=== PATIENT | female | born 1990 ===

== ENCOUNTER 2018-10-07 14:57 | Emergency (ER) | payer OTHER ==
--- NOTE | 2018-10-07 15:13 | ED PDOC ---
Arrival/HPI - General Time Seen by Provider: 10/07/18 15:01 Historian: Patient - History of Present Illness Narrative History of Present Illness (Text): 10/07/18 15:09 28 F with pmh of bipolar disorder presents with chief complaint of SOB w/anxiety [id number]. She notes sudden onset of shortness of breath without any chest pain. She denies any PND, orthopnea or BREWER. She denies any leg swelling. Patient denies feeling depressed or doing any drugs. LMP in August. Patient mentioned she has been complaint with her Latuda medications for her bipolar disorder. Patient denies any fevers, chills, headache, dizziness, cough, abdominal pain, nausea, vomiting, diarrhea, back pain, neck pain, or any other complaint. Time/Duration: 1-3 hours Symptom Onset: Sudden Symptom Course: Unchanged Activities at Onset: Light Context: Home Past Medical History - Provider Review Nursing Documentation Reviewed: Yes Family/Social History - Physician Review Nursing Documentation Reviewed: Yes Family/Social History: Unknown Family HX Allergies/Home Meds Allergies/Adverse Reactions: Allergies No Known Allergies Allergy (Verified 10/07/18 15:10) Home Medications: Home Meds Medication Instructions Recorded Confirmed Lurasidone HCl [Latuda] 120 mg PO HS 10/07/18 10/07/18 Review of Systems - Physician Review All systems were reviewed & negative as marked: Yes - Review of Systems Constitutional: Normal. absent: Fatigue, Fevers Eyes: Normal. absent: Vision Changes, Photophobia, Eye Pain ENT: Normal Respiratory: SOB Cardiovascular: Normal. absent: Chest Pain, Palpitations Gastrointestinal: Normal. absent: Abdominal Pain, Constipation, Diarrhea, Nausea, Vomiting Genitourinary Female: Normal. absent: Dysuria, Frequency, Hematuria, Urine Output Changes, Vaginal Bleeding, Vaginal Discharge Musculoskeletal: Normal. absent: Arthralgias, Back Pain, Neck Pain Skin: Normal. absent: Rash, Pruritis Neurological: Normal. absent: Headache, Dizziness, Focal Weakness Endocrine: Normal Hemo/Lymphatic: Normal Psychiatric: Anxiety. absent: Depression, Suicidal Ideation Physical Exam - Physical Exam Narrative Physical Exam (Text): 10/07/18 15:15 Impression: 28 F with pmh of bipolar disorder presents with chief complaint of SOB w/anxiety [id number] Plan: -- Labs -- EKG -- CXR Prior Visits: Notes and results from previous visits were reviewed. Progress Notes: Vital Signs Reviewed: Yes Temperature: Afebrile Blood Pressure: Normal Pulse: Tachycardic Respiratory Rate: Normal Appearance: Positive for: Well-Appearing, Non-Toxic, Comfortable Pain Distress: None Mental Status: Positive for: Alert and Oriented X 3 - Systems Exam Head: Present: Atraumatic, Normocephalic Pupils: Present: PERRL Extroacular Muscles: Present: EOMI Conjunctiva: Present: Normal Ears: Present: Normal, NORMAL TM, Normal Canal. No: Erythema Mouth: Present: Moist Mucous Membranes Pharnyx: Present: Normal. No: ERYTHEMA, EXUDATE, TONSILS ENLARGED, Uvular Deviation, Muffled/Hoarse Voice Neck: Present: Normal Range of Motion. No: Meningeal Signs, MIDLINE TENDERNESS Respiratory/Chest: Present: Clear to Auscultation, Good Air Exchange. No: R espiratory Distress, Accessory Muscle Use, Wheezes, Decreased Breath Sounds, Rales, Retracting, Rhonchi, Tachypneic Cardiovascular: Present: Normal S1, S2, Peripheal Pulses Present, Tachycardic. No: Murmurs, Bradycardic, Rub, Gallop, Muffled Abdomen: No: Tenderness, Distention, Peritoneal Signs, Rebound, Guarding, McBurney's Point Tender Back: Present: Normal Inspection. No: CVA Tenderness, Midline Tenderness Upper Extremity: Present: Normal Inspection, Normal ROM, NORMAL PULSES. No: Cyanosis, Edema Lower Extremity: Present: Normal Inspection, NORMAL PULSES. No: Edema Neurological: Present: GCS=15, CN II-XII Intact, Speech Normal Skin: Present: Warm, Dry, Normal Color. No: Rashes Psychiatric: Present: Alert, Oriented x 3, Anxious. No: Suicidal Ideation, Homicidal Ideation Medical Decision Making ED Course and Treatment: 10/07/18 15:15 Impression: 28 F with pmh of bipolar disorder presents with chief complaint of SOB w/anxiety [id number]. She notes sudden onset sob without any chest pain. No fall or trauma. No fever, chills or night sweats. No wheezing. No abdominal pain. No back pain. No GI or complaints. No SI or HI or depression / anxiety. No inability to sleep or increased energy. No hx of blood clots, recent surgery, use of horomone therapy or OCPS, hemoptysis, leg swelling or family hx of bleeding / clotting disorders. No cough or throat swelling or sore throat or change in phonation. No chest pain. Low pretest wells. will D-Dimer to rule out Plan: -- Labs -- EKG -- CXR Prior Visits: Notes and results from previous visits were reviewed. Progress Notes: 10/07/18 15:26 EKG: Ordered, reviewed, and independently interpreted the EKG. Rate : 98 BPM Rhythm : NSR Interpretation : No STEMI 10/07/18 16:37 labs, imaging unremarkable reassessed, pt lying comfortably, in NAD w/ lungs CTA b/l, normal affect she notes full resolution of SOB likely panic attack Pt denies any bipolar symptoms. No SI or HI or depression or hallucinations clear for d/c home w/ return indications and f/u, she is agreeable to plan. - Scribe Statement The provider has reviewed the documentation as recorded by the Salena Gil Provider Scribe Attestation: All medical record entries made by the [facility] were at my direction and personal ly dictated by me. I have reviewed the chart and agree that the record accurately reflects my personal performance of the history, physical exam, medical decision making, and the department course for this patient. I have also personally directed, reviewed, and agree with the discharge instructions and disposition. Disposition/Present on Arrival - Present on Arrival Any Indicators Present on Arrival: No - Disposition Have Diagnosis and Disposition been Completed?: Yes Diagnosis: Shortness of breath, Panic attack Disposition: HOME/ ROUTINE Disposition Time: 16:48 Condition: STABLE Discharge Instructions (ExitCare): Anxiety, Adult (DC), Shortness of Breath (Dyspnea) (DC) Additional Instructions: MARYANA ELLIS, thank you for letting us take care of you today. Your provider was Andre Crespo and you were treated for SOB. The emergency medical care you received today was directed at your acute symptoms. If you were prescribed a [place] medication, please fill it and take as directed. It may take several days for your symptoms to resolve. Return to the Emergency Department if your symptoms worsen, do not improve, or if you have any other problems. Please contact your doctor or call one of the physicians/clinics you have been referred to that are listed on the Patient Visit Information form that is included in your discharge packet. Bring any paperwork you were given at discharge with you along with any medications you are taking to your follow up visit. Our treatment cannot replace ongoing medical care by a primary care [facility] outside of the emergency department. Thank you for allowing the [facility] team to be part of your care today. If you had an X-Ray or CT scan: A Radiologist will review the ED reading if any change in treatment is needed we will contact you. If you had a blood, urine, or wound culture: It will take several days for the results, if any change in treatment is needed we will contact you. If you had an STI test: It will take 48 hours for the results. Please call after 1 week if you have not heard back. Referrals: FAMILY PROVIDER,NO [Primary Care Provider] - Follow up with primary
[2018-10-07] MEDS ORDERED: Sodium Chloride 0.9% 1,000 ML IV SCH (15:15)
[2018-10-07 15:51] LABS: BASO # 0.04 K/mm3 (0.0-2.0); BASO % 0.4 % (0.0-3.0); EOS # 0.1 (0.0-0.7); EOS % 1.3 % (1.5-5.0); HEMOGLOBIN 13.4 g/dL (12.0-16.0); LYMPH # 2.1 (1.2-3.4); LYMPH % 22.4 % (22.0-35.0); MEAN CORPUSCULAR HEMOGLOBIN 29.9 pg (25.0-35.0); MEAN CORPUSCULAR HGB CONC 33.3 g/dl (31.0-37.0); MEAN PLATELET VOLUME 10.1 fl (7.0-11.0); MONO # 0.7 (0.1-0.6); MONO % 7.5 % (1.0-6.0); RBC 4.48 10^6/uL (3.5-6.1); RED CELL DISTRIBUTION WIDTH 14.2 % (11.5-14.5); WHITE BLOOD COUNT 9.3 10^3/uL (4.5-11.0)
[2018-10-07 15:59] LABS: ALB/GLOB RATIO 1.3 (1.1-1.8); ALT/SGPT 15 U/L (7-56); AST/SGOT 19 U/L (14-36); BLOOD UREA NITROGEN 14 mg/dL (7-21); GFR NON-AFRICAN AMERICAN > 60
[2018-10-07 16:13] LABS: ACETAMINOPHEN < 10.0 ug/ml (10.0-20.0); SALICYLATE < 1 mg/dL (2.0-20.0)
[2018-10-07 16:25] LABS: PH,URINE 5.5 (4.7-8.0); URINE APPEARANCE CLEAR (CLEAR); URINE BILIRUBIN NEGATIVE (NEGATIVE); URINE BLOOD NEGATIVE (NEGATIVE); URINE COLOR YELLOW (YELLOW); URINE GLUCOSE (UA) NEGATIVE (NEGATIVE); URINE LEUKOCYTE ESTERASE NEGATIVE Leu/uL (NEGATIVE); URINE PROTEIN NEGATIVE mg/dL (<30 mg/dL); URINE UROBILINOGEN 0.2 E.U./dL (<1 E.U./dL)
--- NOTE | 2018-10-07 16:48 | RAD ---
HISTORY: sob COMPARISON: None available. TECHNIQUE: Chest PA and lateral, 2 views FINDINGS: LUNGS: No focal consolidation. Please note that chest x-ray has limited sensitivity for the detection of pulmonary masses. PLEURA: No significant pleural effusion identified. No definite pneumothorax . CARDIOVASCULAR: Heart size appears within normal limits. No atherosclerotic calcification present. OSSEOUS STRUCTURES: No acute osseous abnormality identified. VISUALIZED UPPER ABDOMEN: Unremarkable. OTHER FINDINGS: None. IMPRESSION: No focal consolidation.
[2018-10-07 17:01] VITALS: BP 126/72; PULSE 100; RESP 18; TEMP 98; O2SAT 99
--- NOTE | 2018-10-08 15:22 | CARD ---
APPROVED REPORT Date of service: 10/07/2018 EKG Measurement Heart [id number] <Conclusion> Normal sinus rhythm Normal ECG
== END 2018-10-07 16:59 | disposition home or self-care (01) ==
LOC: ED 14:57 → MERGE 14:57 → ED 16:59
DX: F41.0 Panic disorder [episodic paroxysmal anxiety] (principal); R06.02 Shortness of breath
CPT/HCPCS: 71046; 80053; 80320; 80329; 81003; 81025; 83735; 85025; 85378; 93005; 99285; J7030